=== PATIENT | male | born 1985 | race Caucasian/White ===

== ENCOUNTER 2018-02-17 15:42 | Emergency (ER) | payer SELFPAY ==
--- NOTE | 2018-02-17 16:16 | RAD REPORT ---
EXAM DESCRIPTION: CT - Head Brain Wo Cont - 02/17/2018 4:02 pm CLINICAL HISTORY: Seizure, head injury, scalp laceration COMPARISON: CT head April 2017 TECHNIQUE: Axial 5 mm thick images of the head were obtained without IV contrast. All CT scans are performed using dose optimization technique as appropriate and may include automated exposure control or mA/KV adjustment according to patient size. FINDINGS: No intracranial hemorrhage, mass, edema or shift of mid-line structures. No acute infarcti on changes seen. No abnormal extra-axial fluid collections. Ventricles are normal. No new intracrania l finding since prior imaging. Mastoid air cells and visualized portions of the paranasal sinuses are clear. No acute bony findings. No significant scalp abnormality identifiable. IMPRESSION: Negative non-contrast CT head examination for acute or significant finding.
[2018-02-17 16:21] LABS: Absolute Lymphocytes (CBC) 0.9 K/uL (0.7-4.9); Absolute Monocytes 0.4 K/uL (0.1-1.3); Absolute Neutrophil 7.1 K/uL (1.8-8.0); Basophils % 0.3 % (0-1.3); Eosinophils % 0.2 % (0-4.4); Hematocrit 42.9 % (39.6-49.0); Lymphocytes % 10.8 % (15.3-44.8); MCH 31.2 pg (27.0-35.0); MPV 9.1 fL (7.6-11.3); Monocytes % 4.5 % (3.3-12.3); RBC Red Blood Cell Count 4.77 M/uL (4.33-5.43)
[2018-02-17 16:34] LABS: BUN Blood Urea Nitrogen 9 mg/dL (6-20); Bicarbonate 24 mEq/L (21-31); Glucose Level 140 mg/dL (65-120); Potassium 3.9 mEq/L (3.6-5.0); Sodium Level 139 mEq/L (135-145)
[2018-02-17] MEDS ORDERED: ACETAMINOPHEN 500 MG TAB ONE (16:39)
[2018-02-17] MEDS ORDERED: NA CHLORIDE 0.9% 1,000 ML ONE (16:55)
--- NOTE | 2018-02-17 17:10 | EDPHYS ---
Physician Documentation [facility] Name: Girish Vigil Age: 32 yrs Sex: Male : 1985 Arrival Date: 02/17/2018 Time: 15:50 Bed 30 Private MD: ED Physician Guillermo Terry HPI: 02/17 15:54 This 32 yrs old Male presents to ER via EMS with complaints of seizure. kb 15:54 The patient presents after having a single isolated seizure. Character of seizure(s): kb Motor activity: generalized, shaking all over, Incontinence: none. Seizure onset: just prior to arrival. Context: the seizure(s) was witnessed, by a friend, occurred at home, outdoors, occurred while the patient was standing, Contributing factors: pt reports he has been under a lot of stress and thinks that is what triggered it. Seizure Hx: Original onset: longstanding, Seizure medications: none, stopped prescribed dilantin 3 years ago and did not get on anything else. Associated injury: Head/face: left frontal area, laceration, 1 cm(s). Current symptoms: Currently, the patient is not experiencing any symptoms, the patient feels back to baseline, no decreased level of consciousness, no confusion, no dysphasia, no headache, no paralysis, no visual changes. The patient has experienced similar episodes in the past, chronically. The patient has not recently seen a physician. . Historical: - Allergies: 15:59 No Known Drug Allergies; hb - Home Meds: 15:59 alprazolam 2 mg Oral tab 1 tab 3 times per day for Anxiety with Depression [Active]; hb Zoloft 100 mg Oral tab 2 tabs once daily [Active]; - PMHx: 15:59 MANIC DEPRESSION; hb - PSHx: 15:59 None; hb - Immunization history:: Adult Immunizations unknown. - Social history:: Smoking status: unknown. ROS: 15:53 Constitutional: Negative for fever, chills, and weight loss, ENT: Negative for injury, kb pain, and discharge, Neck: Negative for injury, pain, and swelling, Cardiovascular: Negative for chest pain, palpitations, and edema, Respiratory: Negative for shortness of breath, cough, wheezing, and pleuritic chest pain, Abdomen/GI: Negative for abdominal pain, nausea, vomiting, diarrhea, and constipation, Back: Negative for injury and pain, : Negative for injury, bleeding, discharge, and swelling, MS/Extremity: Negative for injury and deformity. 15:53 Skin: Positive for laceration(s), of the left frontal area. 15:53 Neuro: Positive for seizure activity. Exam: 15:53 Constitutional: This is a well developed, well nourished patient who is awake, alert, kb and in no acute distress. Eyes: Pupils equal round and reactive to light, extra-ocular motions intact. Lids and lashes normal. Conjunctiva and sclera are non-icteric and not injected. Cornea within normal limits. Periorbital areas with no swelling, redness, or edema. ENT: Nares patent. No nasal discharge, no septal abnormalities noted. Tympanic membranes are normal and external auditory canals are clear. Oropharynx with no redness, swelling, or masses, exudates, or evidence of obstruction, uvula midline. Mucous membranes moist. Neck: Trachea midline, no thyromegaly or masses palpated, and no cervical lymphadenopathy. Supple, full range of motion without nuchal rigidity, or vertebral point tenderness. No Meningismus. Chest/axilla: Normal chest wall appearance and motion. Nontender with no deformity. No lesions are appreciated. Cardiovascular: Regular rate and rhythm with a normal S1 and S2. No gallops, murmurs, or rubs. Normal PMI, no JVD. No pulse deficits. Respiratory: Lungs have equal breath sounds bilaterally, clear to auscultation and percussion. No rales, rhonchi or wheezes noted. No increased work of breathing, no retractions or nasal flaring. Abdomen/GI: Soft, non-tender, with normal bowel sounds. No distension or tympany. No guarding or rebound. No evidence of tenderness throughout. MS/ Extremity: Pulses equal, no cyanosis. Neurovascular intact. Full, normal range of motion. Neuro: Awake and alert, GCS 15, oriented to person, place, time, and situation. Cranial nerves II-XII grossly intact. Motor strength 5/5 in all extremities. Sensory grossly intact. Cerebellar exam normal. Normal gait. 15:53 Head/face: Noted is no obvious of injury or deformity except a laceration(s), that is linear, 1 cm(s), of the left frontal area. Vital Signs: 15:59 BP 133 / 75; Pulse 84; Resp 18; Temp 98.9(O); Pulse Ox 100% on R/A; hb 17:00 BP 128 / 79; Pulse 75; Resp 18; Pulse Ox 100% ; tl3 18:14 BP 136 / 98; Pulse 86; Resp 18; Pulse Ox 100% ; tl3 MDM: 15:50 Patient medically screened. kb 15:54 Data reviewed: vital signs, nurses notes. Data interpreted: Pulse oximetry: on room air kb is 100 %. Interpretation: normal. 16:52 Counseling: I had a detailed discussion with the patient and/or guardian regarding: the kb historical points, exam findings, and any diagnostic results supporting the discharge/admit diagnosis, lab results, radiology results, the need for outpatient follow up, a neurologist, to return to the emergency department if symptoms worsen or persist or if there are any questions or concerns that arise at home. ED course: Pt states he has an appt with neurology to have EEG soon. States the last 2 weeks have just been really stressful. . 02/17 15:50 Order name: CBC with Diff; Complete Time: 16:37 kb 02/17 15:50 Order name: Basic Metabolic Panel; Complete Time: 16:37 kb 02/17 15:50 Order name: CT Head Brain wo Cont; Complete Time: 16:23 kb 02/17 15:50 Order name: EKG; Complete Time: 15:51 kb 02/17 17:14 Order name: Urine Dipstick--Ancillary (enter results); Complete Time: 17:34 bd 02/17 15:50 Order name: Urine Dipstick-Ancillary (obtain specimen); Complete Time: 18:16 kb 02/17 15:50 Order name: EKG - Nurse/Tech; Complete Time: 16:36 kb Administered Medications: 17:05 Drug: NS 0.9% 1000 ml Route: IV; Rate: 1000 ml; Site: right antecubital; tl3 18:16 Follow up: IV Status: Completed infusion; IV Intake: 1000ml tl3 Disposition: 02/17/18 17:10 Discharged to Home. Impression: Epilepsy and recurrent seizures. - Condition is Stable. - Discharge Instructions: Seizure, Adult, [id number]. - Medication Reconciliation Form, Thank You Letter, Antibiotic Education, Prescription Opioid Use form. - Follow up: Private Physician; When: 2 - 3 days; Reason: Recheck today's complaints, Continuance of care, Re-evaluation by your physician. Follow up: Emergency Department; When: As needed; Reason: Worsening of condition. Addendum: 02/21/2018 19:14 Co-signature as Attending Physician, Guillermo Terry MD. g s Signatures: Dispatcher [employer] EDMS Bernadine Longoria, CHANNEL LAYER-C CHANNEL LAYER-Ckb Kenia Suero, RN RN Guillermo Terry MD MD Felicity Madden, [place] RN tl3 Corrections: (The following items were deleted from the chart) 02/17 18:29 17:10 02/17/2018 17:10 Discharged to Home. Impression: Epilepsy and recurrent seizures. tl3 Condition is Stable. Discharge Instructions: Seizure, Adult, [id number]. Forms are Medication Reconciliation Form, Thank You Letter, Antibiotic Education, Prescription Opioid Use. Follow up: Private Physician; When: 2 - 3 days; Reason: Recheck today's complaints, Continuance of care, Re-evaluation by your physician. Follow up: Emergency Department; When: As needed; Reason: Worsening of condition. kb
--- NOTE | 2018-02-17 17:10 | ER ---
Nurse's Notes [facility] Name: Giirsh Vigil Age: 32 yrs Sex: Male : 1985 Arrival Date: 02/17/2018 Time: 15:50 Bed 30 Private MD: Diagnosis: Epilepsy and recurrent seizures Presentation: 02/17 15:55 Presenting complaint: EMS states: pt had a witnessed seizure that lasted about 6 hb minutes, then pt became postictal, He was in a standing position in the front yard and fell to the ground hitting the left side of his head, small laceration noted, no active bleeding at this time, ot is AAO X 4. Transition of care: patient was not received from another setting of care. Onset of symptoms was February 17, 2018. Initial Sepsis Screen: Does the patient meet any 2 criteria? No. Patient's initial sepsis screen is negative. Does the patient have a suspected source of infection? No. Patient's initial sepsis screen is negative. Care prior to arrival: IV initiated. 20 GA, in the right antecubital area. 15:55 Method Of Arrival: EMS: [facility] 15:55 Acuity: STEVEN 3 hb Triage Assessment: 15:59 General: Appears uncomfortable, slender, well groomed, well developed, well nourished, hb Behavior is calm, cooperative, appropriate for age. Pain: Complains of pain in scalp and left frontal area. EENT: No signs and/or symptoms were reported regarding the EENT system. Neuro: Level of Consciousness is awake, alert, obeys commands, Oriented to person, place, time, situation, Appropriate for age. Cardiovascular: Heart tones S1 S2 present. Respiratory: Airway is patent Trachea midline Respiratory effort is even, unlabored, Respiratory pattern is regular, symmetrical, Breath sounds are clear bilaterally. GI: No signs and/or symptoms were reported involving the gastrointestinal system. : No signs and/or symptoms were reported regarding the genitourinary system. Derm: Skin is pink, warm \T\ dry. Musculoskeletal: No signs and/or symptoms reported regarding the musculoskeletal system. Historical: - Allergies: 15:59 No Known Drug Allergies; hb - Home Meds: 15:59 alprazolam 2 mg Oral tab 1 tab 3 times per day for Anxiety with Depression [Active]; hb Zoloft 100 mg Oral tab 2 tabs once daily [Active]; - PMHx: 15:59 MANIC DEPRESSION; hb - PSHx: 15:59 None; hb - Immunization history:: Adult Immunizations unknown. - Social history:: Smoking status: unknown. Screenin:02 Abuse screen: Denies threats or abuse. Nutritional screening: No deficits noted. hb Tuberculosis screening: No symptoms or risk factors identified. Fall Risk Secondary diagnosis (15 points) seizures. Assessment: 16:02 Reassessment: pt changed into gown and bed and area cleaned of debris, hands and scalp hb wiped down to remove blood. 17:00 Reassessment: Patient appears in no apparent distress at this time. No changes from tl3 previously documented assessment. Patient and/or family updated on plan of care and expected duration. Pain level reassessed. Patient is alert, oriented x 3, equal unlabored respirations, skin warm/dry/pink. pt sleeping, in no acute distress, head cleaned - wound inspected Leslye at bedside. 18:14 Reassessment: Patient appears in no apparent distress at this time. No changes from tl3 previously documented assessment. Patient and/or family updated on plan of care and expected duration. Pain level reassessed. Patient is alert, oriented x 3, equal unlabored respirations, skin warm/dry/pink. called and let her know that pt would be ready for discharge shortly. Vital Signs: 15:59 BP 133 / 75; Pulse 84; Resp 18; Temp 98.9(O); Pulse Ox 100% on R/A; hb 17:00 BP 128 / 79; Pulse 75; Resp 18; Pulse Ox 100% ; tl3 18:14 BP 136 / 98; Pulse 86; Resp 18; Pulse Ox 100% ; tl3 ED Course: 15:50 Patient arrived in ED. dm5 15:50 Bernadine Longoria FNP-C is [facility]. kb 15:50 Guillermo Terry MD is Attending Physician. kb 15:55 Kenia Suero, [place] is Primary Nurse. hb 15:58 Triage completed. hb 15:59 Arm band placed on left wrist. hb 16:02 No apparent distress. hb 16:02 Patient has correct armband on for positive identification. Placed in gown. Bed in low hb position. Call light in reach. Side rails up X2. Seizure precautions initiated. Pulse ox on. NIBP on. Door closed. Lights dimmed. Warm blanket given. 16:02 No provider procedures requiring assistance completed. Maintain EMS IV. Dressing hb intact. Good blood return noted. Site clean \T\ dry. Gauge \T\ site: 20g. 16:03 CT Head Brain wo Cont In Process Unspecified. EDMS 16:[address] stretcher. hb 16:14 Initial lab(s) drawn, by me, sent to lab. hb 16:15 EKG done, by nuclear medicine technician. hb 18:28 IV discontinued, intact, bleeding controlled, No redness/swelling at site. Pressure tl3 dressing applied. Administered Medications: 17:05 Drug: NS 0.9% 1000 ml Route: IV; Rate: 1000 ml; Site: right antecubital; tl3 18:16 Follow up: IV Status: Completed infusion; IV Intake: 1000ml tl3 Intake: 18:16 IV: 1000ml; Total: 1000ml. tl3 Outcome: 17:10 Discharge ordered by . kb 18:28 Discharged to home ambulatory. tl3 18:28 Condition: stable 18:28 Discharge instructions given to patient, Instructed on discharge instructions, follow up and referral plans. Demonstrated understanding of instructions, follow-up care, stressed importance of follow up with Neuro as scheduled 18:29 Patient left the ED. tl3 Signatures: Dispatcher [employer] EDRI Bernadine Longoria, SYSTEM ADMINISTRATOR-C Ruby Rangel, RN RN dm5 Kenia Suero RN RN Felicity Madden RN RN tl3
[2018-02-17 17:28] LABS: Urine Blood 1+ (NEG); Urine Glucose NEGATIVE (NEG); Urine Protein 2+ (NEG); Urine Specific Gravity >1.030 (1.005-1.030); Urine pH 5.5 (5.0-7.0)
[2018-02-17 18:32] VITALS: TEMP 98.9; O2SAT 100
[2018-02-17 18:35] VITALS: BP 136/98
--- NOTE | 2018-02-17 21:25 | EKG ---
Test Date: 2018-02-17 Test Time: 16:14:41 Operations Advisor: ALEJANDRA MEASUREMENT RESULTS: Intervals: Rate: 56 WV: 150 QRSD: 92 QT: 412 QTc: 397 [place]: P: 56 WV: 150 QRS: 52 T: 58 INTERPRETIVE STATEMENTS: Sinus bradycardia ST elevation, probably due to early repolarization Borderline ECG Compared to ECG 02/19/2015 17:11:25 ST (T wave) deviation now present Early repolarization now present Electronically Signed On 02-17-18 21:24:26 CDT by Mravin Christian
== END 2018-02-17 18:29 | disposition home or self-care (01) ==
LOC: ER 15:42
DX: G40.909 Epilepsy, unspecified, not intractable, without status epilepticus (principal); F32.9 Major depressive disorder, single episode, unspecified
CPT/HCPCS: 36415; 70450; 80048; 81003; 85025; 93005; 96360; 99284; J7030